=== PATIENT | female | born 2000 | race Caucasian/White ===

== ENCOUNTER 2021-03-27 09:17 | Emergency (ER) | payer SELFPAY ==
[~2021-03-27] VITALS: Ht 162.6 cm; Wt 62.0 kg
[2021-03-27 09:30] VITALS: BP 117/76
[2021-03-27] MEDS ORDERED: TETANUS, DIPHTHERIA, PERTUSSIS VAC/PF 0.5ML (>7YR OLD) IM ONE (09:45)
[2021-03-27] MEDS ORDERED: CEPH500T MT (10:46)
[2021-03-27] MEDS ORDERED: MUPI15CR11 TP (10:46)
== END 2021-03-27 11:00 | disposition left against medical advice (07) ==
LOC: ER 09:17
DX: S60.452A Superficial foreign body of right middle finger, initial encounter (principal); I10 Essential (primary) hypertension; X58.XXXA Exposure to other specified factors, initial encounter; Y93.89 Activity, other specified; Y92.89 Other specified places as the place of occurrence of the external cause
CPT/HCPCS: 29130; 73140; 90715; 99283